=== PATIENT | female | born 1980 | race African-American/Black ===

== ENCOUNTER → 2017-12-01 | Outpatient (CLI) | payer MEDICARE, MEDICAID | END | disposition home or self-care (01) | LOC: KCIC 12:15 | DX: I50.32 Chronic diastolic (congestive) heart failure (principal); I51.7 Cardiomegaly; R91.8 Other nonspecific abnormal finding of lung field; Z87.891 Personal history of nicotine dependence | CPT/HCPCS: 71046 ==

== ENCOUNTER 2020-06-03 22:26 | Inpatient (IN) | payer MEDICARE, MEDICAID ==
[~2020-06-03] VITALS: Ht 162.6 cm; Wt 141.8 kg
--- NOTE | 2020-06-03 23:06 | RAD ---
AP chest x-ray HISTORY: Shortness of breath. Asthma exacerbation. COMPARISON: Chest x-ray December 01, 2017. FINDINGS: Moderate cardiomegaly stable. Mediastinal silhouette normal. No pneumothorax. No pleural ef fusions. Heterogeneous opacity at the right lung base with consolidation the right middle lobe silhou etting the minor fissure. Indistinct density at the left lung base likely summation of the overlying chest wall tissues which could limit detection of an underlying lower lobe opacity. Left lower lobe c alcified granuloma stable along with left hilar granuloma. Bones unremarkable. IMPRESSION: Right middle lobe infiltrate with consolidation likely pneumonia. Cardiomegaly stable. Fo llow-up will be of benefit to document that the infiltrate resolves after treatment. Electronically signed by: Jonnie Chand MD (06/03/2020 11:04 PM) [facility]
--- NOTE | 2020-06-03 23:17 | ED.ADGEN ---
Past Medical History Past Medical History: Asthma, Diabetes-Type II, High Cholesterol, Hypertension Past Surgical History: Cholecystectomy, Smoking Status: Current Every Day Smoker Additional Information: 1.5/ppd Alcohol Use: None Drug Use: None General Adult EDM: Chief Complaint: ASTHMA HPI: HPI: Patient is a 39 year old AA female who presents emergency department via EMS with complaints of shortness of breath that began today. Patient reports that she has been smoking about a pack and a half of cigarettes per day for the last week because she plans to quit smoking tomorrow. She states that she has had a productive cough with clear sputum for the last 2 to 3 days. She denies any fever, lower extremity edema, decreased smell/taste, nausea, vomiting, diarrhea, abdominal pain, body aches, fatigue, fever, or known exposure to COVID-19. Patient reports that she takes Flovent daily and albuterol as needed for shortness of breath. EMS gave her a breathing treatment in route to the hospital. The patient states that her chest feels very tight, she denies any palpitations. She currently denies any pain. Patient states that her chest tightness did improve a little after the breathing treatment that was administered by EMS. Review of Systems: Review of Systems: Complete ROS is negative unless otherwise noted in HPI. Current Medications: Current Medications Medications (Trade) Dose Ordered Sig/Chichi Start Time Stop Time Status Last Admin Dose Admin Albuterol Sulfate (Ventolin Neb Soln) 10 mg 1X ONCE 06/03/20 23:30 06/03/20 23:32 DC 06/03/20 23:00 10 MG Ipratropium [place] (Atrovent) 0.5 mg 1X ONCE 06/03/20 23:30 06/03/20 23:32 DC 06/03/20 23:00 0.5 MG Methylprednisolone Sodium Succinate (SOLU-Medrol 125MG VIAL) 125 mg 1X ONCE 06/03/20 23:30 06/03/20 23:32 DC 06/03/20 23:09 125 MG Allergies: Allergies: Allergies Coded Allergies Type Severity Reaction Last Updated Verified ondansetron Allergy Intermediate headache 06/03/20 Yes Physical Exam: PE: See Above Constitutional: Well developed, well nourished, moderate distress, morbidly obese HENT: Normocephalic, atraumatic, bilateral external ears normal, nose normal. [] Eyes: PERRLA, EOMI, conjunctiva normal, no discharge. [] Neck: Normal range of motion, no tenderness, supple, no stridor. [] Cardiovascular:Heart rate regular tachycardic rhythm Lungs & Thorax: Bilateral breath sounds with inspiratory and expiratory wheezes present, mild retractions, labored breathing present Abdomen: soft, no tenderness Skin: Warm, dry, no erythema, no rash. [] Extremities: No cyanosis, ROM intact, no edema. [] Neurologic: Alert and oriented X 3, no focal deficits noted. [] Psychologic: Affect normal, judgement normal, mood normal. [] Current Patient Data: Labs: Laboratory Tests Test 06/03/20 22:40 White Blood Count 11.6 x10^3/uL (4.0-11.0) H Red Blood Count 4.68 x10^6/uL (3.50-5.40) Hemoglobin 15.6 g/dL (12.0-15.5) H Hematocrit 45.0 % (36.0-47.0) Mean Corpuscular Volume 96 fL (79-100) Mean Corpuscular Hemoglobin 33 pg (25-35) Mean Corpuscular Hemoglobin Concent 35 g/dL (31-37) Red Cell Distribution Width 13.6 % (11.5-14.5) Platelet Count 236 x10^3/uL (140-400) Neutrophils (%) (Auto) 84 % (31-73) H Lymphocytes (%) (Auto) 8 % (24-48) L Monocytes (%) (Auto) 6 % (0-9) Eosinophils (%) (Auto) 2 % (0-3) Basophils (%) (Auto) 0 % (0-3) Neutrophils # (Auto) 9.7 x10^3/uL (1.8-7.7) H Lymphocytes # (Auto) 0.9 x10^3/uL (1.0-4.8) L Monocytes # (Auto) 0.7 x10^3/uL (0.0-1.1) Eosinophils # (Auto) 0.2 x10^3/uL (0.0-0.7) Basophils # (Auto) 0.1 x10^3/uL (0.0-0.2) Sodium Level 137 mmol/L (136-145) Potassium Level 4.5 mmol/L (3.5-5.1) Chloride Level 103 mmol/L (98-107) Carbon Dioxide Level 24 mmol/L (21-32) Anion Gap 10 (6-14) Blood Urea Nitrogen 12 mg/dL (7-20) Creatinine 0.8 mg/dL (0.6-1.0) Estimated GFR (Cockcroft-Gault) 96.1 BUN/Creatinine Ratio 15 (6-20) Glucose Level 260 mg/dL (70-99) H Calcium Level 8.8 mg/dL (8.5-10.1) Total Bilirubin 0.6 mg/dL (0.2-1.0) Aspartate Amino Transferase (AST) 17 U/L (15-37) Alanine Aminotransferase (ALT) 26 U/L (14-59) Alkaline Phosphatase 82 U/L (46-116) Total Protein 6.8 g/dL (6.4-8.2) Albumin 3.3 g/dL (3.4-5.0) L Albumin/Globulin Ratio 0.9 (1.0-1.7) L Laboratory Tests 06/03/20 22:40 Laboratory Tests 06/03/20 22:40 Vital Signs: Vital Signs Date Time Temp Pulse Resp B/P (MAP) Pulse Ox O2 Delivery O2 Flow Rate FiO2 06/03/20 23:00 93 Nasal Cannula 4.0 06/03/20 22:26 98.0 109 24 176/89 (118) 98.0 EKG: EK-sinus tachycardia, rate 104, no STEMI [] Heart Score: Risk Factors: Risk Factors: DM, Current or recent (<one month) smoker, HTN, HLP, family history of CAD, obesity. Risk Scores: Score 0 - 3: 2.5% MACE over next 6 weeks - Discharge Home Score 4 - 6: 20.3% MACE over next 6 weeks - Admit for Clinical Observation Score 7 - 10: 72.7% MACE over next 6 weeks - Early Invasive Strategies Radiology/Procedures: Radiology/Procedures: PROCEDURE: CHEST AP ONLY AP chest x-ray HISTORY: Shortness of breath. Asthma exacerbation. COMPARISON: Chest x-ray December 01, 2017. FINDINGS: Moderate cardiomegaly stable. Mediastinal silhouette normal. No p neumothorax. No pleural effusions. Heterogeneous opacity at the right lung base with consolidation the right middle lobe silhouetting the minor fissure. Indistinct density at the left lung base likely summation of the overlying chest wall tissues which could limit detection of an underlying lower lobe opacity. Left lower lobe calcified granuloma stable along with left hilar granuloma. Bones unremarkable. IMPRESSION: Right middle lobe infiltrate with consolidation likely pneumonia. Cardiomegaly stable. Follow-up will be of benefit to document that the infiltrate resolves after treatment. [] Course & Med Decision Making: Course & Med Decision Making Pertinent Labs and Imaging studies reviewed. (See chart for details) 2352- Decision to admit patient as observation status to telemetry to the hospitalist, Dr. THOMSON for community-acquired pneumonia and hypoxia. Patient given 500 mg of IV Zithromax and 1 g of IV Rocephin. [] Dragon Disclaimer: Dragon Disclaimer: This electronic medical record was generated, in whole or in part, using a voice recognition dictation system. Departure Departure Impression: Primary Impression: CAP (community acquired pneumonia) Additional Impression: Hypoxia Disposition: ADMITTED INPT THIS HOSP Admitting Physician: ANGELA West) Condition: STABLE Referrals: Harsh FOWLER MD (PCP) Problem Qualifiers Primary Impression: CAP (community acquired pneumonia) Laterality: right Lung location: middle lobe of lung Qualified Codes: J18.9 - Pneumonia, unspecified organism SUDHEER GORDILLO APRN Jun 03, 2020 23:17
[2020-06-03 23:30] LABS: BASO # 0.1 x10^3/uL (0.0-0.2); BASO % 0 % (0-3); EOS # 0.2 x10^3/uL (0.0-0.7); EOS % 2 % (0-3); HEMOGLOBIN 15.6 g/dL (12.0-15.5); LYMPH # 0.9 x10^3/uL (1.0-4.8); LYMPH % 8 % (24-48); MEAN CORPUSCULAR HEMOGLOBIN 33 pg (25-35); MEAN CORPUSCULAR HGB CONC 35 g/dL (31-37); MEAN CORPUSCULAR VOLUME 96 fL (79-100); MONO # 0.7 x10^3/uL (0.0-1.1); MONO % 6 % (0-9); NEUT # 9.7 x10^3/uL (1.8-7.7); NEUT % 84 % (31-73); PLATELET COUNT 236 x10^3/uL (140-400); RED BLOOD COUNT 4.68 x10^6/uL (3.50-5.40); RED CELL DISTRIBUTION WIDTH 13.6 % (11.5-14.5); WHITE BLOOD COUNT 11.6 x10^3/uL (4.0-11.0)
[2020-06-03] MEDS ORDERED: methylPREDNISolone SOD SUCC PF 125 MG/2 ML VIAL. IV ONE (23:30)
[2020-06-03] MEDS ORDERED: IPRATROPIUM BROMIDE 0.5 MG/2.5 ML NEBU. NEB ONE (23:30)
[2020-06-03] MEDS ORDERED: ALBUTEROL SULFATE 2.5 MG/3 ML NEBU. CONT NEB ONE (23:30)
[2020-06-03 23:41] LABS: CALCIUM 8.8 mg/dL (8.5-10.1); CREATININE 0.8 mg/dL (0.6-1.0); GFR 96.1; POTASSIUM 4.5 mmol/L (3.5-5.1)
[2020-06-03 23:47] LABS: ALBUMIN 3.3 g/dL (3.4-5.0); ALBUMIN/GLOBULIN RATIO 0.9 (1.0-1.7); TOTAL BILIRUBIN 0.6 mg/dL (0.2-1.0); TOTAL PROTEIN 6.8 g/dL (6.4-8.2)
[2020-06-04] MEDS ORDERED: cefTRIAXone IV Push 1 GM VIAL. IVP ONE (00:30)
[2020-06-04] MEDS ORDERED: HYDROcodone/APAP 7.5/325MG 1 TAB TABLET PO ONE (00:30)
[2020-06-04] MEDS ORDERED: AZITHRMYCN 500MG IVPB FOR OMNI 250 ML IV ONE (00:30)
--- NOTE | 2020-06-04 00:39 | NUR ---
Pt. arrived on unit at 0030 by bed from ED. Pt. states she is having some left side pain but has recently gotten some pain medication from the ED. Call light is within reach with bed in lowest position. Will continue to monitor.
--- NOTE | 2020-06-04 01:02 | EKG ---
[facility] [address] [place] [address] Test Date: 2020-06-03 Test Time: 22:36:30 Pat Name: DWIGHT RESENDIZ Department: Room: [facility] Gender: F Mechanical Manufacturing Engineer: : 1980 Requested By: SUDHEER GORDILLO Order Number: [id number] Reading MD: Sherman Gutierres Measurements Intervals [place] Rate: 104 P: 54 ND: 162 QRS: 61 QRSD: 70 T: 50 QT: 326 QTc: 435 Interpretive Statements SINUS TACHYCARDIA Electronically Signed On 06-10-2020 10:17:02 CONTROL OPERATOR by Sherman Gutierres
[2020-06-04] MEDS ORDERED: CARV25TA2 PO (01:20)
[2020-06-04] MEDS ORDERED: FURO80TA72 PO (01:20)
[2020-06-04] MEDS ORDERED: SEMA7TAB PO (01:20)
[2020-06-04] MEDS ORDERED: ATOR20TA58 PO (01:20)
[2020-06-04] MEDS ORDERED: LISI2.5T PO (01:20)
[2020-06-04] MEDS ORDERED: ASPI-630 PO (01:20)
[2020-06-04] MEDS ORDERED: METF10007 PO (01:20)
[2020-06-04] MEDS ORDERED: QUET25TA5 PO (01:20)
[2020-06-04 03:23] VITALS: BP 169/90
[2020-06-04] MEDS ORDERED: guaiFENesin/CODEINE 100mg/10mg 5 ML LIQUID PO PRN (06:15)
[2020-06-04] MEDS ORDERED: METHOCARBAMOL 750 MG TABLET PO PRN (06:15)
[2020-06-04] MEDS ORDERED: KETOROLAC 15 MG/ML VIAL. IVP PRN (06:15)
[2020-06-04] MEDS ORDERED: ALBUTEROL SULFATE 2.5 MG/3 ML NEBU. NEB PRN (06:15)
[2020-06-04 07:00] VITALS: BP 98/58
[2020-06-04] MEDS ORDERED: ASPIRIN CHEWABLE 81 MG TABLET. PO SCH (10:00)
[2020-06-04] MEDS ORDERED: INSULIN LISPRO 300 UNITS/3 ML VIAL. SQ ONE (10:00)
[2020-06-04] MEDS ORDERED: LISINOPRIL 10 MG TABLET PO SCH (10:00)
[2020-06-04] MEDS ORDERED: CARVEDILOL 12.5 MG TABLET. PO SCH (10:00)
[2020-06-04] MEDS ORDERED: predniSONE 10 MG TABLET PO ONE (10:00)
[2020-06-04] MEDS ORDERED: QUEtiapine 25 MG TABLET. PO SCH (10:00)
[2020-06-04] MEDS ORDERED: FUROSEMIDE 20 MG TABLET PO SCH (10:00)
[2020-06-04] MEDS ORDERED: AMOXICILLIN/K CLAV 875/125MG TABLET. PO SCH (10:00)
[2020-06-04] MEDS ORDERED: ALBUTEROL SULFATE 2.5 MG/3 ML NEBU. CONT NEB ONE (10:00)
[2020-06-04] MEDS ORDERED: MAGNESIUM SULFATE 1GM 100 ML IV ONE (10:15)
[2020-06-04 11:00] VITALS: BP 148/74
[2020-06-04] MEDS ORDERED: PRED20TA PO (14:17)
[2020-06-04] MEDS ORDERED: AMOX1TAB11 PO (14:17)
--- NOTE | 2020-06-04 14:24 | PDOC1 ---
History and Physical Date of Admission Date of Admission 06/04/2020 Identification/Chief Complaint Chief Complaint shortness of breath Source Source: Chart review, Patient History of Present Illness History of Present Illness Patient is a 39 year old AA female with past medical history of diabetes asthma hypertension who was in her usual state of health until the day of admission when she had to be transported to our emergency department via EMS patient complained of sudden onset of shortness of breath. Of note is that the patient is a smoker. Patient reports that she has been smoking about a pack and a half of cigarettes per day for the last week because she plans to quit smoking tomorrow. She states that she has had a productive cough with clear sputum for the last 2 to 3 days. She denies any fever, lower extremity edema, decreased smell/taste, nausea, vomiting, diarrhea, abdominal pain, body aches, fatigue, fever, or known exposure to COVID-19. She denies pleurisy no fever no diaphoresis no sensation of impending doom she did report expiratory wheezing and sensation of chest pressure but no really significant. Due to the progressive nature of her dyspnea she decided to come to our emergency department. She was found to have a pneumonic process on her x-ray reason why we were asked to admit the patient for observation. She does not use oxygen at home. The patient acknowledges that she is overweight and has tried to do adjustments to her diet with very little success. Dietary counseli caitlin has been done during my interview and also I have encouraged her to quit smoking as well. Plan of care explained detail concerns were addressed to the best of my ability Past Medical History Cardiovascular: HTN Pulmonary: Asthma Endocrine: Diabetes Past Surgical History Past Surgical History: No pertinent history Family History Family History: No Significant Social History Smoke: # pack years (12) ALCOHOL: none Drugs: None Current Medications Current Medications Current Medications Medications (Trade) Dose Ordered Sig/Chichi Start Time Stop Time Status Last Admin Dose Admin Acetaminophen/ Hydrocodone Bitart (Lortab 7.5/325) 1 tab 1X ONCE 06/04/20 00:30 06/04/20 00:31 DC 06/04/20 00:13 1 TAB Albuterol Sulfate (Ventolin Neb Soln) 10 mg 1X ONCE 06/04/20 10:00 06/04/20 10:34 DC Amoxicillin/ Clavulanate Potassium (Augmentin 875/ 125mg) 1 tab BID 06/04/20 10:00 06/04/20 10:37 1 TAB Aspirin (Aspirin Chewable) 81 mg DAILY 06/04/20 10:00 06/04/20 10:37 81 MG Atorvastatin Calcium (Lipitor) 20 mg QHS 06/04/20 21:00 Azithromycin 250 ml @ 250 mls/hr 1X ONCE 06/04/20 00:30 06/04/20 01:29 DC 06/04/20 00:14 250 MLS/HR Carvedilol (Coreg) 25 mg BIDWMEALS 06/04/20 10:00 Ceftriaxone Sodium (Rocephin) 1 gm 1X ONCE 06/04/20 00:30 06/04/20 00:31 DC 06/04/20 00:13 1 GM Furosemide (Lasix) 60 mg DAILY 06/04/20 10:00 06/04/20 10:38 60 MG Guaifenesin/ Codeine Phosphate (Robitussin Ac) 5 ml PRN Q6HRS PRN 06/04/20 06:15 06/04/20 10:37 5 ML Insulin Human Lispro (HumaLOG) 14 units ONCE ONCE 06/04/20 10:00 06/04/20 10:01 DC 06/04/20 10:40 14 UNITS Ipratropium [place] (Atrovent) 0.5 mg 1X ONCE 06/03/20 23:30 06/03/20 23:32 DC 06/03/20 23:00 0.5 MG Ketorolac Tromethamine (Toradol 15mg Vial) 15 mg PRN Q8HRS PRN 06/04/20 06:15 06/09/20 06:14 06/04/20 08:40 15 MG Lisinopril (Prinivil) 10 mg DAILY 06/04/20 10:00 Magnesium Sulfate/ Dextrose 100 ml @ 100 mls/hr 1X ONCE 06/04/20 10:15 06/04/20 11:14 DC 06/04/20 10:39 100 MLS/HR Methocarbamol (Robaxin) 1,500 mg PRN Q8HRS PRN 06/04/20 06:15 Methylprednisolone Sodium Succinate (SOLU-Medrol 125MG VIAL) 125 mg 1X ONCE 06/03/20 23:30 06/03/20 23:32 DC 06/03/20 23:09 125 MG Non-Formulary Medication (Semaglutide (Rybelsus)) 7 mg DAILYAC 06/05/20 07:30 UNV Prednisone (Prednisone) 50 mg 1X ONCE 06/04/20 10:00 06/04/20 10:01 DC 06/04/20 10:37 50 MG Quetiapine Fumarate (SEROquel) 25 mg DAILY 06/04/20 10:00 06/04/20 10:38 25 MG Allergies Allergies Allergies Coded Allergies Type Severity Reaction Last Updated Verified ondansetron Allergy Intermediate headache 06/03/20 Yes ROS Review of System CONSTITUTIONAL: No fever or chills EYES: No recent changes SKIN: No rash or itching CARDIOVASCULAR: No chest pain, syncope, palpitations, or edema RESPIRATORY: No SOB or cough GASTROINTESTINAL: No nausea, vomiting or abdominal pain NEUROLOGICAL: No headaches or weakness ENDOCRINE: No cold or heat intolerance GENITOURINARY: No urgency or frequency of urination MUSCULOSKELETAL: No back pain or joint pain LYMPHATICS: No enlarged lymph nodes PSYCHIATRIC: No anxiety or depression Physical Exam Physical Exam GEN.: No apparent distress. Alert and oriented. HEENT: Head is normocephalic, atraumatic NECK: Supple. LUNGS: Clear to auscultation. HEART: RRR, S1, S2 present. Peripheral pulses intact ABDOMEN: Soft, nontender. Positive bowel sounds. EXTREMITIES: Without any cyanosis. NEUROLOGIC: Normal speech, normal tone PSYCHIATRIC: Normal affect, normal mood. SKIN: No ulcerations Vitals Vitals Vital Signs Date Time Temp Pulse Resp B/P (MAP) Pulse Ox O2 Delivery O2 Flow Rate FiO2 06/04/20 12:53 93 Nasal Cannula 4.0 06/04/20 11:00 98.5 98 18 148/74 (98) 98.5 Labs Labs Laboratory Tests Test 06/03/20 22:40 06/04/20 07:41 06/04/20 10:38 White Blood Count 11.6 x10^3/uL (4.0-11.0) Red Blood Count 4.68 x10^6/uL (3.50-5.40) Hemoglobin 15.6 g/dL (12.0-15.5) Hematocrit 45.0 % (36.0-47.0) Mean Corpuscular Volume 96 fL (79-100) Mean Corpuscular Hemoglobin 33 pg (25-35) Mean Corpuscular Hemoglobin Concent 35 g/dL (31-37) Red Cell Distribution Width 13.6 % (11.5-14.5) Platelet Count 236 x10^3/uL (140-400) Neutrophils (%) (Auto) 84 % (31-73) Lymphocytes (%) (Auto) 8 % (24-48) Monocytes (%) (Auto) 6 % (0-9) Eosinophils (%) (Auto) 2 % (0-3) Basophils (%) (Auto) 0 % (0-3) Neutrophils # (Auto) 9.7 x10^3/uL (1.8-7.7) Lymphocytes # (Auto) 0.9 x10^3/uL (1.0-4.8) Monocytes # (Auto) 0.7 x10^3/uL (0.0-1.1) Eosinophils # (Auto) 0.2 x10^3/uL (0.0-0.7) Basophils # (Auto) 0.1 x10^3/uL (0.0-0.2) Sodium Level 137 mmol/L (136-145) Potassium Level 4.5 mmol/L (3.5-5.1) Chloride Level 103 mmol/L (98-107) Carbon Dioxide Level 24 mmol/L (21-32) Anion Gap 10 (6-14) Blood Urea Nitrogen 12 mg/dL (7-20) Creatinine 0.8 mg/dL (0.6-1.0) Estimated GFR (Cockcroft-Gault) 96.1 BUN/Creatinine Ratio 15 (6-20) Glucose Level 260 mg/dL (70-99) Calcium Level 8.8 mg/dL (8.5-10.1) Total Bilirubin 0.6 mg/dL (0.2-1.0) Aspartate Amino Transf (AST/SGOT) 17 U/L (15-37) Alanine Aminotransferase (ALT/SGPT) 26 U/L (14-59) Alkaline Phosphatase 82 U/L (46-116) Total Protein 6.8 g/dL (6.4-8.2) Albumin 3.3 g/dL (3.4-5.0) Albumin/Globulin Ratio 0.9 (1.0-1.7) Glucose (Fingerstick) 372 mg/dL (70-99) 358 mg/dL (70-99) Laboratory Tests Test 06/03/20 22:40 06/04/20 07:41 06/04/20 10:38 White Blood Count 11.6 x10^3/uL (4.0-11.0) Red Blood Count 4.68 x10^6/uL (3.50-5.40) Hemoglobin 15.6 g/dL (12.0-15.5) Hematocrit 45.0 % (36.0-47.0) Mean Corpuscular Volume 96 fL (79-100) Mean Corpuscular Hemoglobin 33 pg (25-35) Mean Corpuscular Hemoglobin Concent 35 g/dL (31-37) Red Cell Distribution Width 13.6 % (11.5-14.5) Platelet Count 236 x10^3/uL (140-400) Neutrophils (%) (Auto) 84 % (31-73) Lymphocytes (%) (Auto) 8 % (24-48) Monocytes (%) (Auto) 6 % (0-9) Eosinophils (%) (Auto) 2 % (0-3) Basophils (%) (Auto) 0 % (0-3) Neutrophils # (Auto) 9.7 x10^3/uL (1.8-7.7) Lymphocytes # (Auto) 0.9 x10^3/uL (1.0-4.8) Monocytes # (Auto) 0.7 x10^3/uL (0.0-1.1) Eosinophils # (Auto) 0.2 x10^3/uL (0.0-0.7) Basophils # (Auto) 0.1 x10^3/uL (0.0-0.2) Sodium Level 137 mmol/L (136-145) Potassium Level 4.5 mmol/L (3.5-5.1) Chloride Level 103 mmol/L (98-107) Carbon Dioxide Level 24 mmol/L (21-32) Anion Gap 10 (6-14) Blood Urea Nitrogen 12 mg/dL (7-20) Creatinine 0.8 mg/dL (0.6-1.0) Estimated GFR (Cockcroft-Gault) 96.1 BUN/Creatinine Ratio 15 (6-20) Glucose Level 260 mg/dL (70-99) Calcium Level 8.8 mg/dL (8.5-10.1) Total Bilirubin 0.6 mg/dL (0.2-1.0) Aspartate Amino Transf (AST/SGOT) 17 U/L (15-37) Alanine Aminotransferase (ALT/SGPT) 26 U/L (14-59) Alkaline Phosphatase 82 U/L (46-116) Total Protein 6.8 g/dL (6.4-8.2) Albumin 3.3 g/dL (3.4-5.0) Albumin/Globulin Ratio 0.9 (1.0-1.7) Glucose (Fingerstick) 372 mg/dL (70-99) 358 mg/dL (70-99) VTE Prophylaxis Ordered VTE Prophylaxis Devices: No VTE Pharmacological Prophylaxi: Yes Assessment/Plan Assessment/Plan Acute asthma exacerbation Morbid obesity with a BMI of 53 Diabetes-Type II insuilin requiring uncontrolled High Cholesterol, Hypertension dyslipidemia Plan: Continue p.o. broad-spectrum antibiotics with Augmentin We will start prednisone Nebulization therapy Lispro insulin for hyperglycemia Magnesium 1 g If patient does well she would like to be discharged later in the day DVT prophylaxis with Lovenox Justifications for Admission Other Justification SOPHIA THOMSON MD Jun 04, 2020 14:24
--- NOTE | 2020-06-04 14:31 | PDOC3 ---
Discharge Summary Visit Information Date of Admission: Jun 04, 2020 Date of Discharge: Jun 04, 2020 Admitting Diagnosis Comment: Right middle lobe infiltrate with consolidation likely pneumonia Final Diagnosis Right middle lobe infiltrate with consolidation likely pneumonia DM type 2 Asthma HTN Dyslipidemia Morbid obesity Brief Hospital Course Allergies Allergies Coded Allergies Type Severity Reaction Last Updated Verified ondansetron Allergy Intermediate headache 06/03/20 Yes Vital Signs Vital Signs Date Time Temp Pulse Resp B/P (MAP) Pulse Ox O2 Delivery O2 Flow Rate FiO2 06/04/20 12:53 93 Nasal Cannula 4.0 06/04/20 11:00 98.5 98 18 148/74 (98) 98.5 Lab Results Laboratory Tests Test 06/03/20 22:40 06/04/20 07:41 06/04/20 10:38 White Blood Count 11.6 x10^3/uL (4.0-11.0) Red Blood Count 4.68 x10^6/uL (3.50-5.40) Hemoglobin 15.6 g/dL (12.0-15.5) Hematocrit 45.0 % (36.0-47.0) Mean Corpuscular Volume 96 fL (79-100) Mean Corpuscular Hemoglobin 33 pg (25-35) Mean Corpuscular Hemoglobin Concent 35 g/dL (31-37) Red Cell Distribution Width 13.6 % (11.5-14.5) Platelet Count 236 x10^3/uL (140-400) Neutrophils (%) (Auto) 84 % (31-73) Lymphocytes (%) (Auto) 8 % (24-48) Monocytes (%) (Auto) 6 % (0-9) Eosinophils (%) (Auto) 2 % (0-3) Basophils (%) (Auto) 0 % (0-3) Neutrophils # (Auto) 9.7 x10^3/uL (1.8-7.7) Lymphocytes # (Auto) 0.9 x10^3/uL (1.0-4.8) Monocytes # (Auto) 0.7 x10^3/uL (0.0-1.1) Eosinophils # (Auto) 0.2 x10^3/uL (0.0-0.7) Basophils # (Auto) 0.1 x10^3/uL (0.0-0.2) Sodium Level 137 mmol/L (136-145) Potassium Level 4.5 mmol/L (3.5-5.1) Chloride Level 103 mmol/L (98-107) Carbon Dioxide Level 24 mmol/L (21-32) Anion Gap 10 (6-14) Blood Urea Nitrogen 12 mg/dL (7-20) Creatinine 0.8 mg/dL (0.6-1.0) Estimated GFR (Cockcroft-Gault) 96.1 BUN/Creatinine Ratio 15 (6-20) Glucose Level 260 mg/dL (70-99) Calcium Level 8.8 mg/dL (8.5-10.1) Total Bilirubin 0.6 mg/dL (0.2-1.0) Aspartate Amino Transf (AST/SGOT) 17 U/L (15-37) Alanine Aminotransferase (ALT/SGPT) 26 U/L (14-59) Alkaline Phosphatase 82 U/L (46-116) Total Protein 6.8 g/dL (6.4-8.2) Albumin 3.3 g/dL (3.4-5.0) Albumin/Globulin Ratio 0.9 (1.0-1.7) Glucose (Fingerstick) 372 mg/dL (70-99) 358 mg/dL (70-99) Laboratory Tests Test 06/03/20 22:40 06/04/20 07:41 06/04/20 10:38 White Blood Count 11.6 x10^3/uL (4.0-11.0) Red Blood Count 4.68 x10^6/uL (3.50-5.40) Hemoglobin 15.6 g/dL (12.0-15.5) Hematocrit 45.0 % (36.0-47.0) Mean Corpuscular Volume 96 fL (79-100) Mean Corpuscular Hemoglobin 33 pg (25-35) Mean Corpuscular Hemoglobin Concent 35 g/dL (31-37) Red Cell Distribution Width 13.6 % (11.5-14.5) Platelet Count 236 x10^3/uL (140-400) Neutrophils (%) (Auto) 84 % (31-73) Lymphocytes (%) (Auto) 8 % (24-48) Monocytes (%) (Auto) 6 % (0-9) Eosinophils (%) (Auto) 2 % (0-3) Basophils (%) (Auto) 0 % (0-3) Neutrophils # (Auto) 9.7 x10^3/uL (1.8-7.7) Lymphocytes # (Auto) 0.9 x10^3/uL (1.0-4.8) Monocytes # (Auto) 0.7 x10^3/uL (0.0-1.1) Eosinophils # (Auto) 0.2 x10^3/uL (0.0-0.7) Basophils # (Auto) 0.1 x10^3/uL (0.0-0.2) Sodium Level 137 mmol/L (136-145) Potassium Level 4.5 mmol/L (3.5-5.1) Chloride Level 103 mmol/L (98-107) Carbon Dioxide Level 24 mmol/L (21-32) Anion Gap 10 (6-14) Blood Urea Nitrogen 12 mg/dL (7-20) Creatinine 0.8 mg/dL (0.6-1.0) Estimated GFR (Cockcroft-Gault) 96.1 BUN/Creatinine Ratio 15 (6-20) Glucose Level 260 mg/dL (70-99) Calcium Level 8.8 mg/dL (8.5-10.1) Total Bilirubin 0.6 mg/dL (0.2-1.0) Aspartate Amino Transf (AST/SGOT) 17 U/L (15-37) Alanine Aminotransferase (ALT/SGPT) 26 U/L (14-59) Alkaline Phosphatase 82 U/L (46-116) Total Protein 6.8 g/dL (6.4-8.2) Albumin 3.3 g/dL (3.4-5.0) Albumin/Globulin Ratio 0.9 (1.0-1.7) Glucose (Fingerstick) 372 mg/dL (70-99) 358 mg/dL (70-99) Brief Hospital Course History of Present Illness Patient is a 39 year old AA female with past medical history of diabetes asthma hypertension who was in her usual state of health until the day of admission when she had to be transported to our emergency department via EMS patient complained of sudden onset of shortness of breath. Of note is that the patient is a smoker. Patient reports that she has been smoking about a pack and a half of cigarettes per day for the last week because she plans to quit smoking tomorrow. She states that she has had a productive cough with clear sputum for the last 2 to 3 days. She denies any fever, lower extremity edema, decreased smell/taste, nausea, vomiting, diarrhea, abdominal pain, body aches, fatigue, fever, or known exposure to COVID-19. She denies pleurisy no fever no diaphoresis no sensation of impending doom she did report expiratory wheezing and sensation of chest pressure but no really significant. Due to the progressive nature of her dyspnea she decided to come to our emergency department. She was found to have a pneumonic process on her x-ray reason why we were asked to admit the patient for observation. She does not use oxygen at home. The patient acknowledges that she is overweight and has tried to do adjustments to her diet with very little success. Dietary counseling has been done during my interview and also I have encouraged her to quit smoking as well. Plan of care explained detail concerns were addressed to the best of my ability Patient with very uneventful hospital stay she received Rocephin and Zithromax in the ER and she received 1 dose of Augmentin here in the inpatient setting. Assessment Assessment Physical Exam GEN.: No apparent distress. Alert and oriented. Morbidly obese HEENT: Head is normocephalic, atraumatic NECK: Supple. LUNGS: Clear to auscultation. HEART: RRR, S1, S2 present. Peripheral pulses intact ABDOMEN: Soft, nontender. Positive bowel sounds. EXTREMITIES: Without any cyanosis. NEUROLOGIC: Normal speech, normal tone PSYCHIATRIC: Normal affect, normal mood. SKIN: No ulcerations She was seen 8 hours apart from initial encounter to reassessment prior to discharge Discharge Information Condition at Discharge: Improved Follow Up: Weeks Disposition/Orders: D/C to Home Scheduled Amoxicillin/Potassium Clav (Amox Tr-K Clv 875-125 Mg Tab) 1 Each Tablet, 1 TAB PO BID for CAP for 5 Days, #10 Prescribed by: SOPHIA THOMSON MD on 06/04/20 1417 Aspirin (Aspirin) 81 Mg Tab.chew, 1 TAB PO DAILY for prophylactic, #30 Ref 3 (Reported) Entered as Reported by: DWIGHT MATHEW on 06/04/20 0120 Last Action: Continued on 06/04/20 09 by SOPHIA THOMSON MD Atorvastatin Calcium (Atorvastatin Calcium) 20 Mg Tablet, 1 TAB PO DAILY for cholesterol, #30 Ref 5 (Reported) Entered as Reported by: DWIGHT MATHEW on 06/04/20119 Last Action: Continued on 06/04/20930 by SOPIHA THOMSON MD Carvedilol (Carvedilol) 25 Mg Tablet, 25 MG PO BIDWMEALS for CARDIAC, (Reported) Entered as Reported by: DWIGHT MATHEW on 06/04/20119 Last Action: Converted on 06/04/20930 by SOPHIA THOMSON MD Furosemide (Lasix) 80 Mg Tablet, 60 MG PO DAILY for blood pressure and fluid , ( Reported) Entered as Reported by: DWIGHT MATHEW on 06/04/20119 Last Action: Continued on 06/04/20930 by SOPHIA THOMSON MD Lisinopril (Lisinopril) 2.5 Mg Tablet, 1 TAB PO DAILY for blood pressure, #30 Ref 5 (Reported) Entered as Reported by: DWIGHT MATHEW on 06/04/20119 Last Action: Converted on 06/04/20930 by SOPHIA THOMSON MD Metformin Hcl (Metformin Hcl) 1,000 Mg Tablet, 1,000 MG PO BIDWMEALS for diabetes, (Reported) Entered as Reported by: DWIGHT MATHEW on 06/04/20119 Last Action: HELD on 06/04/20929 by SOPHIA THOMSON MD Prednisone (Prednisone) 20 Mg Tablet, 2 TAB PO DAILY for ASthma for 5 Days, #10 Prescribed by: SOPHIA THOMSON MD on 06/04/20 1417 Quetiapine Fumarate (Seroquel) 25 Mg Tablet, 1 TAB PO DAILY for depression, #30 Ref 2 (Reported) Entered as Reported by: DWIGHT MATHEW on 06/04/20119 Last Action: Continued on 06/04/20930 by SOPHIA THOMSON MD Semaglutide (Rybelsus) 7 Mg Tablet, 7 MG PO DAILYAC for diabetes, (Reported) Entered as Reported by: DWIGHT MATHEW on 06/04/20119 Last Action: Converted on 06/04/20930 by SOPHIA THOMSON MD Scheduled PRN Albuterol Sulfate (Proair Hfa) 8.5 Gm Hfa.aer.ad, 2.5 MG NEB PRN Q4HRS PRN for SHORTNESS OF BREATH for 30 Days, #120 Ref 1 Prescribed by: SOPHIA THOMSON MD on 06/04/20 1441 Justicifation of Admission Dx: Justifications for Admission: Justification of Admission Dx: No Comminuty Aquired Pneumonia: Med-High Risk Pt SOPHIA THOMSON MD Jun 04, 2020 14:31
[2020-06-04] MEDS ORDERED: ALBU2.5V8 NEB (14:41)
--- NOTE | 2020-06-04 15:03 | NUR ---
Pt was given discharge packet, IV taken out, and unhooked from the tele monitor. Pt had no questions/concerns. Pt was stable when leaving unit.
--- NOTE | 2020-06-04 16:33 | NUR ---
SW following for discharge planning. Spoke with RN and reviewed chart. Pt discharged self-care. No SW needs on discharge.
[2020-06-04] MEDS ORDERED: ATORVASTATIN CALCIUM 20 MG TABLET PO SCH (21:00)
[2020-06-05] MEDS ORDERED: SEMAGLUTIDE 7 MG PO SCH (07:30)
== END 2020-06-04 15:00 | disposition home or self-care (01) | DRG 189 ==
LOC: ER 22:26 → 6 SOUTH 23:52 → OBSVTOIN 06-04 13:30
PROVIDERS: ADMIT Internal Medicine; ATTEND Internal Medicine
DX: J96.01 Acute respiratory failure with hypoxia (principal); J18.9 Pneumonia, unspecified organism; J45.901 Unspecified asthma with (acute) exacerbation; Z68.43 Body mass index [BMI] 50.0-59.9, adult; E78.00 Pure hypercholesterolemia, unspecified; E66.01 Morbid (severe) obesity due to excess calories; E78.5 Hyperlipidemia, unspecified; I11.9 Hypertensive heart disease without heart failure; E11.65 Type 2 diabetes mellitus with hyperglycemia; F17.210 Nicotine dependence, cigarettes, uncomplicated; Z90.49 Acquired absence of other specified parts of digestive tract; Z98.891 History of uterine scar from previous surgery; Z88.8 Allergy status to other drugs, medicaments and biological substances; Z71.6 Tobacco abuse counseling; Z71.3 Dietary counseling and surveillance
CPT/HCPCS: 36415; 71045; 80053; 82962; 85025; 93005; 94640; 94644; 94760; 96374; 96375; 99285; G0378; G0379; J0456; J0696; J1815; J1885; J2930; J3475; J7512; J7613; J7644